=== PATIENT | female | born 1990 | race Caucasian/White ===

== ENCOUNTER 2016-08-18 10:51 | Emergency (ER) | payer MEDICAID, OTHER ==
[~2016-08-18] VITALS: Ht 149.9 cm; Wt 41.0 kg
[2016-08-18 13:18] VITALS: BP 107/41
[2016-08-18] MEDS ORDERED: TETANUS, DIPHTHERIA, PERTUSSIS VAC/PF 0.5ML (>7YR OLD) IM ONE (15:15)
[2016-08-18] MEDS ORDERED: DOXYCYCLINE HYCLATE 100MG CAPSULE PO NR (15:15)
== END 2016-08-18 15:46 | disposition home or self-care (01) ==
LOC: ER 14:24
DX: H00.033 Abscess of eyelid right eye, unspecified eyelid (principal); F17.200 Nicotine dependence, unspecified, uncomplicated; F12.10 Cannabis abuse, uncomplicated; F14.10 Cocaine abuse, uncomplicated
CPT/HCPCS: 99283

== ENCOUNTER 2017-01-05 13:11 | Emergency (ER) | payer MEDICAID ==
[~2017-01-05] VITALS: Ht 149.9 cm; Wt 50.0 kg
[2017-01-05] MEDS ORDERED: HYDROCODONE/ACETAMINOPHEN 5/325MG TABLET PO ONE (14:30)
[2017-01-05 14:37] VITALS: BP 131/93
== END 2017-01-05 17:05 | disposition home or self-care (01) ==
LOC: ER 14:52
DX: S82.002A Unspecified fracture of left patella, initial encounter for closed fracture (principal); S20.212A Contusion of left front wall of thorax, initial encounter; M79.642 Pain in left hand; M79.641 Pain in right hand; M25.531 Pain in right wrist; S09.90XA Unspecified injury of head, initial encounter; Y08.89XA Assault by other specified means, initial encounter; Y93.89 Activity, other specified; Y92.480 Sidewalk as the place of occurrence of the external cause; F17.210 Nicotine dependence, cigarettes, uncomplicated
CPT/HCPCS: 71010; 73090; 73110; 73130; 73560; 81025; 99284

== ENCOUNTER 2017-05-13 18:51 | Emergency (ER) | payer MEDICAID ==
[~2017-05-13] VITALS: Ht 149.9 cm; Wt 46.0 kg
[2017-05-13 19:18] VITALS: BP 120/62
== END 2017-05-13 21:57 | disposition left against medical advice (07) ==
LOC: ER 20:38
DX: R51 Headache (principal); Z53.21 Procedure and treatment not carried out due to patient leaving prior to being seen by health care provider

== ENCOUNTER 2017-05-14 04:16 | Emergency (ER) | payer MEDICAID ==
[~2017-05-14] VITALS: Ht 149.9 cm; Wt 45.0 kg
[2017-05-14] MEDS ORDERED: ACETAMINOPHEN 325MG TABLET PO ONE (06:30)
[2017-05-14 06:53] LABS: BASOPHILS % 0.8 % (0.0-2.0); EOSINOPHILS % 4.1 % (0.0-5.0); HEMATOCRIT. 36.2 % (36.0-48.0); HEMOGLOBIN. 11.2 g/dL (12.0-16.0); LYMPHOCYTES % 24.2 % (20.0-50.0); MEAN CORPUSCULAR HEMOGLOBIN 19.9 pg (28.0-32.0); MEAN CORPUSCULAR VOLUME 63.9 fL (81.0-99.0); MEAN PLATELET VOLUME 8.6 fl (7.4-10.4); MONOCYTES % 6.4 % (2.0-8.0); NEUTROPHILS % 64.5 % (40.0-76.0); PLATELET 389 x1000/uL (130-400); RED BLOOD CELL COUNT 5.66 mill/uL (4.2-5.4); RED CELL DISTRIBUTION WIDTH 15.6 % (11.6-14.6)
[2017-05-14 07:04] LABS: CHLORIDE 107 mEq/L (98-107)
[2017-05-14 07:09] LABS: ETHANOL BLOOD < 10 mg/dL
[2017-05-14 07:48] LABS: CLARITY URINE CLOUDY (CLEAR); COLOR URINE YELLOW (YELLOW); KETONES URINE NEGATIVE (NEGATIVE); LEUKOCYTE ESTERASE URINE 1+ (NEGATIVE); NITRITE URINE POSITIVE (NEGATIVE); OCCULT BLOOD URINE NEGATIVE (NEGATIVE); PH URINE 5.5 (4.5-8.0); PROTEIN URINE NEGATIVE (NEGATIVE); SPECIFIC GRAVITY URINE 1.017 (1.005-1.030); UROBILINOGEN URINE 0.2 E.U./dL (0.2-1.0)
[2017-05-14 07:57] LABS: PLATELET ESTIMATE NORMAL
[2017-05-14 08:24] LABS: *AMPHETAMINES SCREEN URINE NEGATIVE (NEGATIVE); *BARBITURATES SCREEN URINE NEGATIVE (NEGATIVE); *BENZODIAZEPINES SCREEN URINE NEGATIVE (NEGATIVE); METHADONE URINE SCREEN NEGATIVE (NEGATIVE); OPIATES URINE SCREEN NEGATIVE (NEGATIVE); PHENCYCLIDINE URINE SCREEN NEGATIVE (NEGATIVE)
[2017-05-14 08:26] LABS: *COCAINE SCREEN URINE PRESUMTIVE POSITIVE (NEGATIVE); CANNABINOID URINE SCREEN PRESUMTIVE POSITIVE (NEGATIVE)
[2017-05-14 11:41] VITALS: BP 108/51
== END 2017-05-14 11:44 | disposition home or self-care (01) ==
LOC: ER 04:27
DX: S42.031A Displaced fracture of lateral end of right clavicle, initial encounter for closed fracture (principal); S09.8XXA Other specified injuries of head, initial encounter; N39.0 Urinary tract infection, site not specified; D64.9 Anemia, unspecified; F14.10 Cocaine abuse, uncomplicated; F12.10 Cannabis abuse, uncomplicated; F17.200 Nicotine dependence, unspecified, uncomplicated; Z59.0 Homelessness; Z98.890 Other specified postprocedural states; Y04.8XXA Assault by other bodily force, initial encounter; Y93.89 Activity, other specified; Y92.89 Other specified places as the place of occurrence of the external cause; Y99.8 Other external cause status; Z91.048 Other nonmedicinal substance allergy status
CPT/HCPCS: 36415; 70450; 73030; 80053; 80305; 81003; 81025; 85025; 87086; 99285; G0482

== ENCOUNTER 2017-09-12 14:04 | Emergency (ER) | payer MEDICAID ==
[~2017-09-12] VITALS: Ht 149.9 cm; Wt 50.0 kg
[2017-09-12 15:01] VITALS: BP 117/65
== END 2017-09-12 15:02 | disposition home or self-care (01) ==
LOC: ER 14:14
DX: S00.86XA Insect bite (nonvenomous) of other part of head, initial encounter (principal); F17.200 Nicotine dependence, unspecified, uncomplicated; F12.10 Cannabis abuse, uncomplicated; W57.XXXA Bitten or stung by nonvenomous insect and other nonvenomous arthropods, initial encounter; Y93.89 Activity, other specified; Y92.018 Other place in single-family (private) house as the place of occurrence of the external cause
CPT/HCPCS: 99283

== ENCOUNTER 2017-09-14 16:29 | Emergency (ER) | payer MEDICAID ==
[~2017-09-14] VITALS: Ht 165.1 cm; Wt 64.0 kg
[2017-09-14] MEDS ORDERED: TETRACAINE 0.5% OPHTH DROPS 4ML OP ONE (18:00)
[2017-09-14] MEDS ORDERED: BALANCED SALT IRRIG SOLN 15ML IO ONE (18:00)
[2017-09-14] MEDS ORDERED: FLUORESCEIN SODIUM 1MG/STRIP OP ONE (18:00)
[2017-09-14 18:45] VITALS: BP 101/55
[2017-09-14] MEDS ORDERED: TETANUS, DIPHTHERIA, PERTUSSIS VAC/PF 0.5ML (>7YR OLD) IM ONE (18:45)
== END 2017-09-14 19:20 | disposition home or self-care (01) ==
LOC: ER 16:29
DX: S05.01XA Injury of conjunctiva and corneal abrasion without foreign body, right eye, initial encounter (principal); Y93.89 Activity, other specified; Y04.8XXA Assault by other bodily force, initial encounter; Y92.89 Other specified places as the place of occurrence of the external cause; F12.90 Cannabis use, unspecified, uncomplicated; Z23 Encounter for immunization
CPT/HCPCS: 81025; 90471; 90715; 99284; Z7610

== ENCOUNTER 2017-10-20 11:28 | Emergency (ER) | payer MEDICAID ==
[~2017-10-20] VITALS: Ht 160 cm; Wt 50.0 kg
[2017-10-20 11:30] VITALS: BP 110/56
== END 2017-10-20 15:48 | disposition left against medical advice (07) ==
LOC: ER 11:28
DX: T63.391A Toxic effect of venom of other spider, accidental (unintentional), initial encounter (principal); Y92.89 Other specified places as the place of occurrence of the external cause; Z53.21 Procedure and treatment not carried out due to patient leaving prior to being seen by health care provider

== ENCOUNTER 2018-09-17 12:31 | Emergency (ER) | payer MEDICAID ==
[~2018-09-17] VITALS: Ht 149.9 cm; Wt 48.0 kg
[2018-09-17] MEDS ORDERED: ACETAMINOPHEN WITH CODEINE 300/30MG TABLET PO STA (15:29)
[2018-09-17] MEDS ORDERED: LEVETIRACETAM 500MG PREMIX 100 ML IV ONE (17:30)
[2018-09-17 17:36] LABS: BASOPHILS % 0.5 % (0.0-2.0); EOSINOPHILS % 0.6 % (0.0-5.0); HEMATOCRIT. 35.9 % (36.0-48.0); HEMOGLOBIN. 11.4 g/dL (12.0-16.0); LYMPHOCYTES % 14.7 % (20.0-50.0); MEAN CORPUSCULAR HEMOGLOBIN 20.7 pg (28.0-32.0); MEAN CORPUSCULAR VOLUME 65.1 fL (81.0-99.0); MEAN PLATELET VOLUME 8.7 fl (7.4-10.4); MONOCYTES % 3.9 % (2.0-8.0); NEUTROPHILS % 80.3 % (40.0-76.0); PLATELET 312 x1000/uL (130-400); RED BLOOD CELL COUNT 5.52 mill/uL (4.2-5.4); RED CELL DISTRIBUTION WIDTH 15.7 % (11.6-14.6)
[2018-09-17 17:38] LABS: PARTIAL THROMBOPLASTIN TIME 27.5 sec (23.4-31.0); PROTHROMBIN TIME 10.4 sec (9.6-11.0)
[2018-09-17 17:40] LABS: CHLORIDE 109 mEq/L (98-107)
[2018-09-17 17:45] LABS: ETHANOL BLOOD < 10 mg/dL
[2018-09-17 17:56] LABS: PLATELET ESTIMATE NORMAL
[2018-09-17 19:05] VITALS: BP 102/46
[2018-09-17] MEDS ORDERED: LORAZEPAM 2MG/ML CPJ ONE (19:11)
[2018-09-17] MEDS ORDERED: LORAZEPAM 2MG/ML CPJ IV PRN (19:11)
== END 2018-09-17 19:35 | disposition short-term general hospital (02) ==
LOC: ER 12:31
DX: S02.31XA Fracture of orbital floor, right side, initial encounter for closed fracture (principal); I62.9 Nontraumatic intracranial hemorrhage, unspecified; F12.10 Cannabis abuse, uncomplicated; F14.10 Cocaine abuse, uncomplicated; Z91.048 Other nonmedicinal substance allergy status; Y08.89XA Assault by other specified means, initial encounter; Y93.89 Activity, other specified; Y92.89 Other specified places as the place of occurrence of the external cause; Y99.8 Other external cause status
CPT/HCPCS: 36415; 70450; 70486; 71045; 72125; 80053; 80320; 84484; 85025; 85610; 85730; 93005; 96365; 99291; J1953; J2060; G0480